=== PATIENT | female | born 1950 | race American Indian/Alaskan Native ===

== ENCOUNTER 2016-07-24 08:57 | Outpatient (CLI) | payer MEDICARE ==
--- NOTE | 2016-07-24 14:19 | Fluoroscopy Report ---
Double contrast upper GI series. History: Abdominal pain. Findings: A lap band is identified in good position. The esophagus is normal in caliber and contour with no evidence of stricture or hiatal hernia. No gastroesophageal reflux. The stomach, duodenal bulb, and loop are normal. Impression: Normal study with satisfactory position of the lap band.
== END 2016-07-24 08:58 | disposition home or self-care (01) ==
LOC: FLUORO 08:57
PROVIDERS: ATTEND Specialist
DX: R10.13 Epigastric pain (principal); R10.9 Unspecified abdominal pain
CPT/HCPCS: 74247

== ENCOUNTER 2016-08-05 08:55 | Outpatient (CLI) | payer MEDICARE ==
[2016-08-05 10:02] LABS: Blood Urea Nitrogen 14 mg/dL (7-17)
--- NOTE | 2016-08-05 12:46 | Cat Scan Report ---
CT of the abdomen and pelvis with IV contrast. History: Abdominal pain. Findings: The liver, spleen, and pancreas are normal. The gallbladder has been removed. Postsurgical changes at the GE junction are noted. There is a hypodense mass in the anterior aspect of the left kidney, upper pole measuring 3.3 cm in maximum dimension. On delayed images, there is increasing enhancement with elevated CT numbers indicating that the masses not cystic. The right kidney is unremarkable. There is a cystic mass in the left adnexa measuring 4.5 x 6.4 cm. The uterus is been removed. No abnormal fluid collections are seen. There is no evidence of appendicitis. Impression: 1. Indeterminate mass in the upper pole of the left kidney. MRI with and without contrast may be useful in further evaluation. 2. Prominent left adnexal cystic mass, probably ovarian. 3. Postoperative changes as detailed above.
== END 2016-08-05 08:56 | disposition home or self-care (01) ==
LOC: CT 08:55
PROVIDERS: ATTEND Surgery
DX: N28.89 Other specified disorders of kidney and ureter (principal); K21.9 Gastro-esophageal reflux disease without esophagitis; R10.13 Epigastric pain; Z90.49 Acquired absence of other specified parts of digestive tract; Z90.710 Acquired absence of both cervix and uterus
CPT/HCPCS: 36415; 74177; 82565; 84520; Q9967

== ENCOUNTER 2016-09-16 07:10 | Outpatient (CLI) | payer MEDICARE ==
--- NOTE | 2016-09-17 13:31 | Mammography Report ---
Bilateral mammogram: Compared to 07/29/12. CAD study utilized. Findings: Predominance adipose tissue bilaterally. Benign axillary nodes. Benign calcifications. New circumscribed density measuring 8 mm in diameter subareolar area left breast Impression: New subareolar density left breast. Recommend spot mag and if necessary sonographic examination. BI-RADS CATEGORY: 0 = Needs additional imaging evaluation ACR BI-RADS MAMMOGRAPHIC CODES: 0 = Needs additional imaging evaluation; 1 = Negative; 2 = Benign; 3 = Probably benign; 4 = Suspicious; 5 = Malignant; 6 = Known biopsy-proven malignancy COMMENT: 1. Dense breast tissue, i.e., adenosis, fibrocystic changes, etc., may obscure an underlying neoplasm. 2. Approximately 10% of cancers are not detected with mammography. 3. A negative mammography report should not delay biopsy if a clinically suspicious mass is present. COMMENT: Patient follow-up letters are generated in [employer].
== END 2016-09-16 07:11 | disposition home or self-care (01) ==
LOC: MAMMO 07:10
PROVIDERS: ATTEND Obstetrics & Gynecology
DX: Z12.31 Encounter for screening mammogram for malignant neoplasm of breast (principal); I10 Essential (primary) hypertension; J45.909 Unspecified asthma, uncomplicated; E11.9 Type 2 diabetes mellitus without complications; F17.200 Nicotine dependence, unspecified, uncomplicated
CPT/HCPCS: 77067; G0202

== ENCOUNTER 2016-11-04 13:55 | Emergency (ER) | payer MEDICARE ==
--- NOTE | 2016-11-04 16:03 | Emergency Department Report ---
Entered by CARRINGTON MCKINNON, acting as scribe for JÚNIOR MURRELL NP. Chief Complaint: Abdominal Pain Stated Complaint: RT SIDE FLANK PAIN Time Seen by Provider: 11/04/16 15:45 - HPI History of Present Illness: 65 y/o female present with right sided flank pain. Sx include low back pain. Pt states she had a sugar of 143 this morning. Pt reports that she has a mass on her ovary and kidney as stated per her urologist. Pt endorses ETOH use occasionally but denies tobacco use. A2 - ROS Review of Systems: + right flank pain + low back pain - - - Exam Vital Signs: Vital Signs 11/04/16 15:48 Temperature 98.4 F Pulse Rate 94 H Respiratory 18 Rate Blood Pressure 193/112 O2 Sat by Pulse 95 Oximetry Physical Exam: right flank pain that radiates towards the abd MSE screening note: Focused history and physical exam performed. Due to findings the following was ordered: labs ED Disposition for MSE Condition: Stable This documentation as recorded by the scribe,CARRINGTON MCKINNON,accurately reflects the service I personally performed and the decisions made by HANDY torrez TRACY M , [place]SHAWN.
[2016-11-04 16:10] LABS: Basophils % (Auto) 0.7 % (0.0-1.8); Eosinophils % (Auto) 0.7 % (0.0-4.3); Hematocrit 42.4 % (30.3-42.9); Mean Corpuscular HGB Conc 33 % (30-34); Mean Corpuscular Hemoglobin 32 pg (28-32); Mean Corpuscular Volume 96 fl (79-97); Platelet Count 279 K/mm3 (140-440); Red Blood Count 4.44 M/mm3 (3.65-5.03); Red Cell Distribution Width 14.1 % (13.2-15.2)
[2016-11-04 16:59] LABS: Bacteria,Urine 2+ /HPF (Negative); Bilirubin,Urine NEG (Negative); Blood,Urine NEG (Negative); Ketones,Urine NEG (Negative); Leukocyte Esterase,Urine TR (Negative); Mucus,Urine FEW /HPF; Nitrite,Urine NEG (Negative)
[2016-11-04 17:07] LABS: Albumin 4.3 g/dL (3.9-5); Albumin/Globulin Ratio 1.1 %; BUN/Creatinine Ratio 13.33; Bilirubin,Total 0.7 mg/dL (0.1-1.2); Calcium 9.9 mg/dL (8.4-10.2); Chloride 98.6 mmol/L (98-107); Potassium 3.3 mmol/L (3.6-5.0); Total Protein 8.2 g/dL (6.3-8.2)
[2016-11-04] MEDS: TORADOL IM ONE (21:30)
[2016-11-04] MEDS: ZOFRAN ODT PO ONE (23:23)
[2016-11-04] MEDS: MORPHINE IM ONE (23:23)
[2016-11-04 23:27] VITALS: BP 133/78
--- NOTE | 2016-11-04 23:55 | Emergency Department Report ---
HPI - General Chief Complaint: Abdominal Pain Time Seen by Provider: 11/04/16 15:46 - HPI HPI: Patient is a 65-year-old female whom presents for evaluation right flank and abdominal pain. Patient reports right flank pain and right lower quadrant abdominal pain for the past one day, constant since onset, 10/10 in severity, sharp in quality, radiating from the right flank to the right lower quadrant. The patient denies fever, chills, night sweats, diarrhea, blood in the stool, dark tarry stool, dysuria, hematuria, flank pain, genital discharge, inability to pass flatus. ED Past Medical Hx - Past Medical History Hx Hypertension: Yes Hx Diabetes: Yes Hx Asthma: Yes Additional medical history: SLEEP APNEA ,lap band,Lt kidney Mass,Lt ovarian Mass ,Chronic Back pain,Piriformis - Surgical History Additional Surgical History: LAP BAND ,hysterectomy with right ovary removed - Social History Smoking Status: Former Smoker Substance Use Type: None - Medications Home Medications: Home Medications Medication Instructions Recorded Confirmed Last Taken Type Calcium Carb & Citrate/Vit D3 1 each PO QDAY 11/05/13 11/05/13 Unknown History [Calcium + Vitamin D3 Caplet] Cyclobenzaprine [Flexeril 10 MG 10 mg PO TID PRN 11/05/13 11/05/13 Unknown History TAB] Escitalopram [Lexapro] 10 mg PO DAILY 11/05/13 11/05/13 Unknown History Fluticasone Propionate [Flovent 110 mcg IH BID 11/05/13 11/05/13 Unknown History Diskus] Lidocaine 5% Patch [Lidoderm 5%] 1 each TP QDAY 11/05/13 11/05/13 Unknown History Meloxicam 15 mg PO QDAY 11/05/13 11/05/13 Unknown History Multivitamin [Multi-Vitamin Daily] 1 tab PO QDAY 11/05/13 11/05/13 Unknown History Nebulizer [Soothe Neb] 1 inh INHALATION PRN 11/05/13 11/05/13 Unknown History Pregabalin [Lyrica] 75 mg PO QDAY 11/05/13 11/05/13 Unknown History Ranitidine HCl [Zantac 300 MG TAB] 300 mg PO QDAY 11/05/13 11/05/13 Unknown History Simvastatin 20 mg PO QDAY 11/05/13 11/05/13 Unknown History Tiotropium [Spiriva] 18 mcg PO QDAY 11/05/13 11/05/13 Unknown History Trazodone HCl [traZODone] 150 mg PO QDAY 11/05/13 11/05/13 Unknown History Vitamin B Complex [B Complex] 1 each PO DAILY 11/05/13 11/05/13 Unknown History amLODIPine/VALSARTAN [Exforge 1 each PO DAILY 11/05/13 11/05/13 Unknown History 5-160 mg Tablet] oxyCODONE /ACETAMINOPHEN [Percocet 1 tab PO Q6HR PRN 11/05/13 11/05/13 Unknown History 5/325 mg] metFORMIN [Glucophage] 500 mg PO DAILY #30 tablet 11/08/13 Unknown Rx HYDROcodone/APAP 7.5-325 [[place] 1 each PO Q8HR PRN #10 tablet 11/05/16 Unknown Rx 7.5-325 mg TAB] Ibuprofen [Motrin] 800 mg PO Q8HR PRN #15 tablet 11/05/16 Unknown Rx Ondansetron [Zofran TAB] 4 mg PO Q8HR PRN #15 tablet 11/05/16 Unknown Rx ED Review of Systems ROS: Stated complaint: RT SIDE FLANK PAIN Other details as noted in HPI Constitutional: denies: fever ENT: denies: throat or neck pain Respiratory: denies: cough, shortness of breath Cardiovascular: denies: chest pain Endocrine: denies unexplained weight loss or gain Gastrointestinal: reports abdominal pain, nausea Genitourinary: denies: dysuria Musculoskeletal: denies: leg swelling Skin: denies: rash Neurological: denies: headache Hematological/Lymphatic: denies: easy bleeding or easy bruising Psych: denies sadness or hopelessness Physical Exam - Physical Exam Vital Signs: Vital Signs 11/04/16 11/04/16 11/04/16 15:48 21:22 21:30 Temperature 98.4 F 98.1 F Pulse Rate 94 H 97 H Respiratory 18 18 18 Rate Blood Pressure 193/112 132/94 Blood Pressure [Left] O2 Sat by Pulse 95 100 Oximetry 11/04/16 23:24 Temperature Pulse Rate 78 Respiratory 16 Rate Blood Pressure Blood Pressure 133/78 [Left] O2 Sat by Pulse 95 Oximetry Physical Exam: General: well-nourished, well-developed, no acute distress Head: Normocephalic, atraumatic Eyes: normal sclera ENT: Mucous membranes are pink and moist Neck: trachea midline, neck supple, No neck stiffness, no cervical adenopathy Respiratory: Breath sounds equal bilaterally, no wheezing, rales, or rhonchi Cardio: S1 and S2 present, no murmurs, rubs, gallops, capillary refill is brisk Abdomen: Normoactive bowel sounds, soft abdomen, RLQ tender, no rigidity, no guarding or rebound tenderness Chest WALL/Back: right CVA tenderness with percussion Musc: No pitting edema Skin: No rash Neuro: no facial drooping, normal speech Psych: Normal affect ED Course Vital Signs 11/04/16 11/04/16 11/04/16 15:48 21:22 21:30 Temperature 98.4 F 98.1 F Pulse Rate 94 H 97 H Respiratory 18 18 18 Rate Blood Pressure 193/112 132/94 Blood Pressure [Left] O2 Sat by Pulse 95 100 Oximetry 11/04/16 23:24 Temperature Pulse Rate 78 Respiratory 16 Rate Blood Pressure Blood Pressure 133/78 [Left] O2 Sat by Pulse 95 Oximetry ED Medical Decision Making - Lab Data Result diagrams: 11/04/16 15:53 11/04/16 15:53 - Medical Decision Making The patient was seen and examined by myself. The patient is placed on a cardiac cath lab manager and continuous pulse ox. On initial evaluation, the patient was found to be in no distress. Evaluation orders are placed. The patient is given an IM dose of morphine for her pain. Lab results were non-concerning including WBC, hemoglobin, hematocrit, electrolytes, renal function, LFTs, lipase, and urinalysis. CT scan abdomen and pelvis reveals unchanged renal and pelvic masses and otherwise is unremarkable. The patient was reevaluated and reported that their symptoms were markedly improved. The patient is stable for discharge with outpatient follow-up. The patient is given follow-up and return instructions. The patient expressed understanding and agreed with the plan. The patient is discharged in stable condition. Critical care attestation.: If time is entered above; I have spent that time in minutes in the direct care of this critically ill patient, excluding procedure time. ED Disposition Clinical Impression: Acute right flank pain, Acute abdominal pain in right lower quadrant, Renal cyst Disposition: TO HOME OR SELFCARE Is pt being admited?: No Does the pt Need Aspirin: No Condition: Stable Instructions: Abdominal Pain (ED), Flank Pain (ED) Referrals: ERICKSON LAW MD [Primary Care Provider] - 3-5 Days Time of Disposition: 23:46
--- NOTE | 2016-11-05 00:46 | Cat Scan Report ---
FINAL REPORT PROCEDURE: CT ABDOMEN PELVIS WO CON TECHNIQUE: Computerized axial tomography of the abdomen and pelvis was performed without intravenous contrast. This study is performed without intravascular contrast material and its sensitivity for abdominal and pelvic pathology, including neoplasms, inflammation, abscess, free fluid, thrombosis, arterial dissection and infarction, is reduced compared with a contrast enhanced study. HISTORY: rt flank pain, chronic renal pelvic masses COMPARISON: 08/05/2016 FINDINGS: Visualized lower thorax: No significant abnormality. Liver: Normal size and attenuation. Spleen: Normal size and attenuation. Gallbladder and biliary system: The gallbladder is absent. There is slight prominence of the common bile duct. No stones are identified.. Pancreas: Normal. Adrenals: There is an 8 millimeter area of hypoattenuation in the left adrenal gland, and adenoma is suspected.. Kidneys: There is soft tissue fullness in the anterior left renal cortex, this appears to represent some type of soft tissue mass, this is not fully evaluated on this study. There was an area seen on prior exam. The size has not changed. Further evaluation of this region may be appropriate.. GI tract: No obstruction. No ileus or enteritis. The cecum, appendix and colon are normal.. Lymph nodes and mesentery: Normal. Vasculature: Normal. Bladder: Normal. Reproductive organs: The uterus is absent. There is a dominant cyst on the left ovary this measures 5.8 x 4.2 centimeters. No significant change since prior exam.. Peritoneum: No free fluid. Musculoskeletal structures: No significant abnormality. Other: None. IMPRESSION: There is no evidence of intestinal or urinary tract obstruction. No ileus or enteritis. Left ovaries cystic region measures up to 5.8 centimeters. This area remains unchanged since prior exam. Further differentiation with ultrasound may be appropriate. Small left adrenal adenoma is suspected. Suspected cysts identified off the lower pole of the right kidney. Indeterminate mass anterior lateral left renal cortex is again noted and unchanged..
== END 2016-11-05 01:55 | disposition home or self-care (01) ==
LOC: ED 13:55
DX: N28.1 Cyst of kidney, acquired (principal); R10.31 Right lower quadrant pain; I10 Essential (primary) hypertension; E11.9 Type 2 diabetes mellitus without complications; J45.909 Unspecified asthma, uncomplicated; Z87.891 Personal history of nicotine dependence
CPT/HCPCS: 36415; 74176; 80053; 81001; 82962; 83690; 85025; 96372; 99284; J1885; J2270; Q0162

== ENCOUNTER 2016-11-14 10:11 | Outpatient (CLI) | payer MEDICARE ==
[2016-11-14 11:10] LABS: Blood Urea Nitrogen 12 mg/dL (7-17)
--- NOTE | 2016-11-14 11:12 | Mammography Report ---
Left mammogram: Based on prior screening report of September 16 a marker was placed on the patient's nipple. Repeat imaging indicates that the previously described subareolar nodule in fact represents the nipple. Recommendation: Annual mammogram followup. BI-RADS CATEGORY: 1 = Negative ACR BI-RADS MAMMOGRAPHIC CODES: 0 = Needs additional imaging evaluation; 1 = Negative; 2 = Benign; 3 = Probably benign; 4 = Suspicious; 5 = Malignant; 6 = Known biopsy-proven malignancy COMMENT: 1. Dense breast tissue, i.e., adenosis, fibrocystic changes, etc., may obscure an underlying neoplasm. 2. Approximately 10% of cancers are not detected with mammography. 3. A negative mammography report should not delay biopsy if a clinically suspicious mass is present.
== END 2016-11-14 10:12 | disposition home or self-care (01) ==
LOC: MRI 10:11
PROVIDERS: ATTEND Internal Medicine
DX: R92.8 Other abnormal and inconclusive findings on diagnostic imaging of breast (principal); N28.1 Cyst of kidney, acquired; I10 Essential (primary) hypertension; J45.909 Unspecified asthma, uncomplicated; Z87.891 Personal history of nicotine dependence; E11.9 Type 2 diabetes mellitus without complications
CPT/HCPCS: 36415; 82565; 84520; G0206

== ENCOUNTER 2016-11-25 06:16 | Day surgery (SDC) | payer MEDICARE ==
[2016-11-25 07:04] VITALS: BP 148/88
[2016-11-25 07:13] LABS: Basophils % (Auto) 0.9 % (0.0-1.8); Eosinophils % (Auto) 1.5 % (0.0-4.3); Hematocrit 41.7 % (30.3-42.9); Hemoglobin 13.4 gm/dl (10.1-14.3); Mean Corpuscular HGB Conc 32 % (30-34); Mean Corpuscular Hemoglobin 31 pg (28-32); Mean Corpuscular Volume 95 fl (79-97); Platelet Count 243 K/mm3 (140-440); Red Blood Count 4.38 M/mm3 (3.65-5.03); Red Cell Distribution Width 13.9 % (13.2-15.2); White Blood Count 8.2 K/mm3 (4.5-11.0)
[2016-11-25 07:20] LABS: INR 0.91 (0.87-1.13)
[2016-11-25 07:21] LABS: Partial Thromboplastin Time 24.1 Sec. (24.2-36.6)
== END 2016-11-25 09:20 | disposition home or self-care (01) ==
LOC: CATHLABREC 06:16 → EDSTATUS 08:30 → CATHLABREC 09:20
PROVIDERS: ATTEND Urology
DX: N28.89 Other specified disorders of kidney and ureter (principal); Z53.8 Procedure and treatment not carried out for other reasons
CPT/HCPCS: 36415; 85025; 85610; 85730

== ENCOUNTER 2017-05-09 05:51 | Day surgery (SDC) | payer MEDICARE ==
[2017-05-09] MEDS ORDERED: NACL BACTERIOSTATIC INFILTRATI ONE (06:08)
[2017-05-09] MEDS ORDERED: XYLOCAINE 1% 20 mL ONE (06:28)
[2017-05-09] MEDS ORDERED: MARCAINE 0.5% 30 ML INFILTRATI ONE (06:29)
[2017-05-09] MEDS ORDERED: DIPRIVAN 10 MG/ML IV ONE (06:56)
[2017-05-09] MEDS ORDERED: SUBLIMAZE ONE (06:58)
[2017-05-09] MEDS ORDERED: FLAGYL 500 MG/100 ML 500 MG/100 ML BAG IV NR (07:00)
[2017-05-09] MEDS ORDERED: TRANSDERM-SCOP TD NR (07:00)
[2017-05-09] MEDS ORDERED: LOVENOX SUB-Q NR (07:00)
[2017-05-09] MEDS ORDERED: ANCEF/STERILE WATER 2 GM/20 ML IV NR (07:00)
[2017-05-09] MEDS ORDERED: ADRENALIN ONE (07:20)
--- NOTE | 2017-05-09 07:21 | Anesthesia Consultation ---
Anesthesia Consult and Med Hx Date of service: 05/09/17 - Airway Anesthetic Teeth Evaluation: Good ROM Head & Neck: Adequate Mental/Hyoid Distance: Adequate Mallampati Class: Class III Intubation Access Assessment: Probably Good - Pulmonary Exam CTA: Yes - Cardiac Exam Cardiac Exam: RRR - Pre-Operative Health Status ASA Pre-Surgery Classification: ASA3 Proposed Anesthetic Plan: General - Pulmonary Hx Smoking: Yes (stopped 2014) Hx Asthma: Yes (last attact 2012) Hx Sleep Apnea: Yes - Cardiovascular System Hx Hypertension: Yes (1993) Hx Heart Attack/AMI: Yes (silent 1995) - Central Nervous System Hx Back Pain: Yes Hx Psychiatric Problems: Yes - Other Systems Hx Alcohol Use: No Hx Substance Use: Yes (MARIJUANA (PAIN)) Hx Cancer: No Hx Obesity: Yes
--- NOTE | 2017-05-09 07:23 | Anesthesia Day of Surgery ---
Anesthesia Day of Surgery - Day of Surgery Patient Examined: Yes Patient H&P Reviewed: Yes Patient is NPO: Yes (did not take zantac - gave pepcid) Beta Blockers: Yes Cardiac Clearance: Yes (took metoprolol) Pulmonary Clearance: Yes
[2017-05-09] MEDS ORDERED: PEPCID IV ONE (07:27)
[2017-05-09] MEDS ORDERED: NACL 0.9% 1000 ML 1,000 ML ONE ×2 (07:27→09:03)
[2017-05-09] MEDS ORDERED: WATER FOR IRRIG STERILE IR ONE (07:30)
[2017-05-09] MEDS ORDERED: NACL 0.9% 1000 ML 1,000 ML IV SCH (08:00)
[2017-05-09] MEDS ORDERED: PEPCID IV NR (08:00)
[2017-05-09] MEDS ORDERED: ZOFRAN IV NR (08:00)
[2017-05-09] MEDS ORDERED: QUELICIN ONE (08:13)
[2017-05-09] MEDS ORDERED: XYLOCAINE MPF 2% ONE (08:13)
[2017-05-09] MEDS ORDERED: ZEMURON IV ONE (08:13)
[2017-05-09] MEDS ORDERED: DECADRON ONE (08:14)
[2017-05-09] MEDS ORDERED: ZOFRAN ONE (08:14)
[2017-05-09] MEDS ORDERED: ROBINUL ONE (08:14)
[2017-05-09] MEDS ORDERED: XYLOCAINE 1% 20 mL INFILTRATI ONE (08:29)
[2017-05-09] MEDS ORDERED: MARCAINE 0.5% INFILTRATI ONE (08:29)
[2017-05-09] MEDS ORDERED: NACL 0.9% IR ONE (08:29)
[2017-05-09] MEDS ORDERED: ADRENALIN SUB-Q ONE (08:30)
[2017-05-09] MEDS ORDERED: NEO SYNEPHRINE/NS Syringe(OR USE) IV ONE (09:11)
[2017-05-09] MEDS: SUBLIMAZE IV PRN ×3 (10:09→10:47)
--- NOTE | 2017-05-09 10:15 | Operative Report ---
Operative Report Operative Report: Pre-Operative/Procedure Diagnosis: Lap Band disfunction Post-Operative/Procedure Diagnosis: same as pre-op Procedure: Laparoscopic band removal Surgeon: Daniela Darling MD Assistants: Josefa Hughes DO Anesthesia Type: GETA Indication: Pt has a history of gastric banding. She has been having issues with gastric reflux and is uncomfortable. She is wishing to have her lap band system removed. Procedure in detail: Pt agreed to procedure after risks and benefits were discussed with patient including but not limited to bleeding, infection, damage to surrounding structures and need for further surgery. Pt was supine on exam table. Bilateral lower extremity SCD were placed. General anesthesia was induced with successful endotracheal intubation. Her abdomen was prepped and draped in sterile fashion. A veress needle was placed in the left upper quadrant and used to insuflate the abdomen to a pressure of 15mmHg. Using optiview technique a 5mm trocar was placed left of midline superior to the umbilicus. There was noted to be no injury to any intra-abdominal structures. Four working structures were placed under direct visualization. 15mm in the right mid abdomen, and three 5mm trocars. One in the RUQ, LUQ, and epigastric area. A liver retractor was placed in the epigastric port and elevated the left lateral lobe of the liver. The patient was placed in steep reverse trendelenburg. The band was noted to be situated around the proximal stomach. The band was cut and removed from around the stomach to help re-establish a more normal stomach anatomy. It was then taken outside of the abdominal cavity. The cicatrix was released. There was noted to be stomach tightly adhered to the underside of the liver. The patient was flattened out. The 15mm trocar fascia was closed with an #1 PDS using a suture passer device. Local anesthsia using 50/50 marcaine/lidocaine was used at all incision sites. The abdomen was desuflated, the band port was excised from the rectus fascia in the epigatric area. This pocket was closed in a layered fashion using 2-O vicryl followed by 4 -O monocryl. All other incisions were closed with 4-O monocryl followed by dermabond. Pt was awoken and taken to recovery in stable condition. All counts were correct. Findings, Comments, Additional Events and Management: per above Specimens sent: none Estimated Blood Loss: <10ml Condition: good
--- NOTE | 2017-05-09 10:20 | Discharge Summary ---
Providers - Providers Attending physician: SAQIB VEGA Primary care physician: ERICKSON LAW Hospitalization Condition: Good Procedures: laparoscopic gastric band removal Hospital course: 66 y.o. F presented to same day surgery for laparoscopic gastric band removal. She tolerated the procedure well. She was discharged home the same day. Disposition: DC-01 TO HOME OR SELFCARE Core Measure Documentation - Palliative Care Palliative Care/ Comfort Measures: Not Applicable - Core Measures Any of the following diagnoses?: none Exam - Physical Exam Narrative exam: gen: alert and awake abd: soft, obese, incision sites cdi. tender at incision sites. no rebound no guarding - Constitutional Vitals: Temp Pulse Resp BP Pulse Ox 97.2 F L 61 18 137/75 96 05/09/17 06:37 05/09/17 06:37 05/09/17 06:37 05/09/17 06:37 05/09/17 06:37 Plan Activity: other (no lifting >15lbs for 6 weeks ) Diet: clear liquids, other (clear liquids the first day of surgery, then advance as tolerated. ) Wound: open to air Additional Instructions: Follow up in office for wound check. Follow up with: ERICKSON LAW MD [Primary Care Provider] - 7 Days
--- NOTE | 2017-05-09 10:25 | Post Anesthesia Evaluation ---
- Post Anesthesia Evaluation Patient Participated: Yes Airway Patent: Yes Stable Respiratory Function: Yes Nausea/Vomiting: No Temp > 96.8F: Yes Pain Manageable: Yes Adequeate Hydration: Yes Anesthesia Complications: No Block Receding Appropriately: Not Applicable Patient on Ventilator: No
[2017-05-09] MEDS ORDERED: PERCOCET 5/325 PO ONE (11:35)
[2017-05-09 16:32] VITALS: BP 157/96
== END 2017-05-09 12:20 | disposition home or self-care (01) ==
LOC: OR 05:51
PROVIDERS: ATTEND Surgery
DX: K95.09 Other complications of gastric band procedure (principal); I25.2 Old myocardial infarction; I10 Essential (primary) hypertension; J45.909 Unspecified asthma, uncomplicated; K21.9 Gastro-esophageal reflux disease without esophagitis; G47.30 Sleep apnea, unspecified; M19.90 Unspecified osteoarthritis, unspecified site; E11.9 Type 2 diabetes mellitus without complications; E66.9 Obesity, unspecified; Z68.39 Body mass index [BMI] 39.0-39.9, adult; Z79.899 Other long term (current) drug therapy; Z87.891 Personal history of nicotine dependence; Z98.890 Other specified postprocedural states; Z90.49 Acquired absence of other specified parts of digestive tract; Z79.84 Long term (current) use of oral hypoglycemic drugs; Y83.2 Surgical operation with anastomosis, bypass or graft as the cause of abnormal reaction of the patient, or of later complication, without mention of misadventure at the time of the procedure
CPT/HCPCS: 43774; 82962; J0171; J0330; J0690; J1100; J1650; J2370; J2405; J2704; J3010; J7030

== ENCOUNTER 2017-05-20 09:07 | Outpatient (CLI) | payer MEDICARE ==
--- NOTE | 2017-05-20 11:39 | Ultrasound Report ---
ULTRASOUND RENAL BILATERAL HISTORY: Cyst of kidney. TECHNIQUE: transabdominal ultrasound with color Doppler interrogation. Comparison: 11/07/13. FINDINGS: The right kidney measures 9.1cm. Right renal cortex: 1.1cm. The left kidney measures 9.0cm. Left renal cortex: 1.4cm. The kidneys are at the lower limits of normal size. There is increased renal parenchymal echotexture on today's exam which is a new finding. No evidence for calculus, mass or hydronephrosis. There are 2 tiny cysts at the superior pole of the left kidney measuring 9 mm each. The bladder is partially empty but within normal limits. IMPRESSION: Slightly echogenic kidneys consistent with nonspecific renal parenchymal disease. Mild chronic renal parenchymal disease could also be considered. This is a new finding since 2013. No obstructive uropathy. There are 2 tiny simple appearing cysts at the superior pole left kidney which were not clearly demonstrated on the previous exam.
== END 2017-05-20 09:08 | disposition home or self-care (01) ==
LOC: US 09:07
PROVIDERS: ATTEND Urology
DX: N28.1 Cyst of kidney, acquired (principal)
CPT/HCPCS: 76770

== ENCOUNTER 2017-12-15 08:03 | Outpatient (CLI) | payer MEDICARE ==
--- NOTE | 2017-12-15 16:40 | Mammography Report ---
BILATERAL DIGITAL SCREENING MAMMOGRAM with CAD: 12/15/17 08:03:00 CLINICAL: Routine screening. COMPARISON:09/16/16 FINDINGS: The breasts are almost entirely fatty. No mass, architectural distortion or suspicious calcifications. IMPRESSION: No mammographic evidence of malignancy. BI-RADS CATEGORY: 1 - - Negative RECOMMENDATION: Routine mammographic screening in one year. COMMENT: Patient follow-up letters are generated by our [employer] application.
== END 2017-12-15 08:04 | disposition home or self-care (01) ==
LOC: MAMMO 08:03
PROVIDERS: ATTEND Internal Medicine
DX: Z12.31 Encounter for screening mammogram for malignant neoplasm of breast (principal); I10 Essential (primary) hypertension; E11.9 Type 2 diabetes mellitus without complications; E78.00 Pure hypercholesterolemia, unspecified; K21.9 Gastro-esophageal reflux disease without esophagitis; E66.9 Obesity, unspecified; M19.90 Unspecified osteoarthritis, unspecified site; Z90.89 Acquired absence of other organs; Z90.49 Acquired absence of other specified parts of digestive tract; Z90.710 Acquired absence of both cervix and uterus; Z87.891 Personal history of nicotine dependence
CPT/HCPCS: 77067